=== PATIENT | female | born 1950 | race Caucasian/White ===

== ENCOUNTER 2016-09-29 15:04 | Emergency (ER) | payer MEDICARE, OTHER ==
[~2016-09-29] VITALS: Ht 160 cm; Wt 64.5 kg
[2016-09-29 15:22] VITALS: Ht 160 cm; Wt 64.5 kg
[2016-09-29 15:59] LABS: ADD SCAN DIFF NO
[2016-09-29 16:02] LABS: BASOPHILS % 0.3 % (0.0-2.0); EOSINOPHILS # 0.1 10^3/ul (0.0-0.5); EOSINOPHILS % 0.7 % (0.0-7.0); HEMATOCRIT 44.6 % (37.0-47.0); LYMPHOCYTES # 2.7 10^3/ul (0.8-2.9); LYMPHOCYTES % 31.1 % (15.0-51.0); MEAN CORPUSCULAR HEMOGLOBIN 27.2 pg (29.0-33.0); MEAN CORPUSCULAR HGB CONC 31.4 g/dl (32.0-37.0); MEAN CORPUSCULAR VOLUME 86.8 fl (82.0-101.0); MEAN PLATELET VOLUME 10.8 fl (7.4-10.4); MONOCYTE # 0.6 10^3/ul (0.3-0.9); MONOCYTES % 7.3 % (0.0-11.0); NEUTROPHIL # 5.3 10^3/ul (1.6-7.5); NEUTROPHILS % 60.4 % (39.0-77.0); PLATELET COUNT 208 10^3/UL (140-415); RED BLOOD COUNT 5.14 10^6/ul (4.20-5.40); RED CELL DISTRIBUTION WIDTH 12.1 % (11.5-14.5); WHITE BLOOD COUNT 8.8 10^3/ul (4.8-10.8)
[2016-09-29] MEDS ORDERED: MECL-77 PO (16:04)
[2016-09-29] MEDS ORDERED: CLON-379 PO (16:05)
[2016-09-29] MEDS ORDERED: IBUP-1542 PO (16:05)
[2016-09-29] MEDS ORDERED: OMEG1CAP2 PO (16:06)
[2016-09-29] MEDS ORDERED: CRES10 PO (16:07)
[2016-09-29] MEDS ORDERED: LOSA100T7 PO (16:09)
[2016-09-29] MEDS ORDERED: SERT50TA6 PO (16:09)
[2016-09-29] MEDS ORDERED: AMLO5TAB4 PO (16:10)
[2016-09-29] MEDS ORDERED: GABA300C16 PO (16:10)
[2016-09-29 16:19] LABS: INR 0.94; PROTIME 12.6 Sec (12.2-14.2)
[2016-09-29 16:20] LABS: PARTIAL THROMBOPLASTIN TIME 34.9 Sec (25.0-35.0)
--- NOTE | 2016-09-29 16:22 | RADRPT ---
PROCEDURE: XR Chest. CLINICAL INDICATION: Chest pain. TECHNIQUE: Single frontal view. COMPARISON: None. FINDINGS: The lungs are clear. The heart size is normal. There is no pleural effusion. There is no pneumothorax. IMPRESSION: 1. Normal chest radiograph. RPTAT: QQ .Lazaro Jaime MD, Date Time Electronically viewed and signed by .Lazaro Jaime MD, on 09/29/2016 16:21 .R/
[2016-09-29 16:24] LABS: CHLORIDE 96 mmol/L (97-110); POTASSIUM 3.6 mmol/L (3.5-5.1); SODIUM 140 mmol/L (135-144)
[2016-09-29 16:27] LABS: ANION GAP 17 (8-16); BLOOD UREA NITROGEN 13 mg/dl (7-20); CALCIUM 9.8 mg/dl (8.4-10.2); CARBON DIOXIDE 31 mmol/L (21-31); CREATINE KINASE 39 IU/L (23-200); CREATININE 0.62 mg/dl (0.44-1.00); GLUCOSE 122 mg/dl (70-220)
[2016-09-29 16:35] LABS: CK-MB 0.72 ng/ml (0.0-2.4)
[2016-09-29 16:44] LABS: TROPONIN-I < 0.012 ng/ml (0.00-0.12)
--- NOTE | 2016-09-29 16:50 | ERD ---
ER Documentation Chief Complaint Date/Time DATE: 09/29/16 TIME: 16:46 Chief Complaint HTN & CHEST PAIN YESTERDAY HPI This is a 66-year-old female who presents to the emergency room for evaluation of elevated blood pressure. The patient does state that she takes benazepril, and clonidine. She states that she felt mildly nauseous today and noted her blood pressure was elevated above 190 and she came to the emergency room today for evaluation. She denies any chest pain or shortness of breath or dizziness or headache at this time. ROS All systems reviewed and are negative except as per history of present illness. Medications Home Meds Reported Medications Gabapentin* (Gabapentin*) 300 Mg Capsule, 300 MG PO TID, #90 CAP 09/29/16 Amlodipine Besylate* (Norvasc*) 5 Mg Tablet, 5 MG PO DAILY, TAB 09/29/16 Losartan Potassium* (Losartan Potassium*) 100 Mg Tablet, 100 MG PO DAILY, TAB 09/29/16 Sertraline Hcl* (Sertraline Hcl*) 50 Mg Tablet, 50 MG PO DAILY, #30 TAB 09/29/16 Rosuvastatin Calcium* (Crestor*) 10 Mg Tablet, 10 MG PO DAILY, #30 TAB 09/29/16 [place]-3 Acid Ethyl Esters (Lovaza) 1 Gm Capsule, 1 GM PO DAILY, CAP 09/29/16 Clonidine Hcl* (Clonidine Hcl*) 0.1 Mg Tab, 0.1 MG PO DAILY Y for PRN, TAB 09/29/16 Ibuprofen* (Ibuprofen*) 600 Mg Tablet, 600 MG PO DAILY Y for PRN, TAB 09/29/16 Meclizine Hcl* (Meclizine Hcl*) 25 Mg Tablet, 25 MG PO DAILY Y for DIZZINESS, TAB 09/29/16 Allergies Allergies: Uncoded Allergies: ANTIBOTICS (Allergy, Unknown, CAN ONLY TAKE CIPRO, 09/29/16) PMhx/Soc History of Surgery: No Hx Alcohol Use: No Hx Substance Use: No Hx Tobacco Use: No Smoking Status: Current every day smoker Physical Exam Vitals Vital Signs Date Time Temp Pulse Resp B/P Pulse Ox O2 Delivery O2 Flow Rate FiO2 09/29/16 16:08 77 18 151/71 99 Room Air 09/29/16 15:22 97.6 73 20 195/81 97 Physical Exam INITIAL VITAL SIGNS: Reviewed by me GENERAL: The patient is well developed and appropriate for usual state of health in no apparent distress HEENT: Pupils equal, round, and reactive to light. EOMI. There is no scleral icterus. NECK: C-spine is soft and supple, there is no meningismus. There is no cervical lymphadenopathy. LUNGS: Clear to auscultation bilaterally. There are no rales, wheezes or rhonchi. HEART: Regular rate and rhythm, no murmurs, clicks, rubs or gallops. ABDOMEN: Soft, non-tender, non-distended. There are bowel sounds in all four quadrants. No rebound or guarding. EXTREMITIES: There is no peripheral cyanosis or edema. No focal swelling or erythema. NEUROLOGICAL: The patient moves all four extremities with 5/5 strength. Cranial nerves II - XII are intact. Normal gait. Alert and oriented SKIN: There is no apparent rash or petechiae. HEME/LYMPHATIC: There is no evidence of excessive bruising or lymphedema. PSYCHIATRIC: The patient does not appear anxious or depressed. Result Diagram: 09/29/16 1540 09/29/16 1540 Results 24 hrs Laboratory Tests Test 09/29/16 15:40 White Blood Count 8.810^3/ul Red Blood Count 5.1410^6/ul Hemoglobin 14.0g/dl Hematocrit 44.6% Mean Corpuscular Volume 86.8fl Mean Corpuscular Hemoglobin 27.2pg Mean Corpuscular Hemoglobin Concent 31.4g/dl Red Cell Distribution Width 12.1% Platelet Count 02722^3/UL Mean Platelet Volume 10.8fl Neutrophils % 60.4% Lymphocytes % 31.1% Monocytes % 7.3% Eosinophils % 0.7% Basophils % 0.3% Nucleated Red Blood Cells % 0.0/100WBC Neutrophils # 5.310^3/ul Lymphocytes # 2.710^3/ul Monocytes # 0.610^3/ul Eosinophils # 0.110^3/ul Basophils # 0.010^3/ul Nucleated Red Blood Cells # 0.010^3/ul Prothrombin Time 12.6Sec Prothrombin Time Ratio 1.0 INR International Normalized Ratio 0.94 Activated Partial Thromboplast Time 34.9Sec Sodium Level 140mmol/L Potassium Level 3.6mmol/L Chloride Level 96mmol/L Carbon Dioxide Level 31mmol/L Anion Gap 17 Blood Urea Nitrogen 13mg/dl Creatinine 0.62mg/dl Glucose Level 122mg/dl Calcium Level 9.8mg/dl Creatine Kinase 39IU/L Creatine Kinase Index 1.8 Creatinine Kinase MB (Mass) 0.72ng/ml Troponin I < 0.012ng/ml Procedures/MDM EKG: Rate/Rhythm: [Normal Sinus Rhythm] QRS, ST, T-waves: [No changes consistent w/ acute ischemia] Impression: [No evidence of ischemia or arrhythmia] Chest X-ray 1V Interpreted by me: Soft Tissue: No acute abnormalities Bones: No acute abnormalities Mediastinum/Cardiac Silhouette/Lungs: [No acute abnormalities] This 66-year-old female presents to the emergency room for evaluation of asymptomatic hypertension. She states that she had mild nausea however she has had that for the past 3 days. When I evaluated her her triage blood pressure was greater than 190. Lab work was obtained including EKG and a chest x-ray all of which are normal. Patient's troponin is negative EKG is nonischemic. Chest x-ray is also clear. I suspicion was sitting in the emergency room her blood pressure is now 144/72. She says she is feeling much better at this time. The patient was not given any medications in the common I feel her drop in blood pressure is due to her home medications that she took today. I advised the patient that she can follow-up with her primary care physician for possible medication adjustment if her blood pressure is continually elevated, she verbalized understanding. The patient feels comfortable with the plan of care and advised to return immediately to the ER if she develops any chest pain , headache, nausea vomiting Departure Diagnosis: Primary Impression: Hypertension Condition: Stable JAMEE GUEVARA DO September 29, 2016 16:50
[2016-09-29] MEDS ORDERED: ACETAMINOPHEN 500 MG TAB PO STA (17:17)
[2016-09-29 17:40] VITALS: BP 151/72; PULSE 71; RESP 18
== END 2016-09-29 18:14 | disposition home or self-care (01) ==
LOC: E/R 15:04
DX: I10 Essential (primary) hypertension (principal); R40.2252 Coma scale, best verbal response, oriented, at arrival to emergency department; F17.210 Nicotine dependence, cigarettes, uncomplicated; R40.2142 Coma scale, eyes open, spontaneous, at arrival to emergency department; R40.2362 Coma scale, best motor response, obeys commands, at arrival to emergency department
CPT/HCPCS: 36415; 71010; 80048; 82550; 82553; 84484; 85025; 85610; 85730; 93005